=== PATIENT | female | born 1960 | race Hispanic/Latino ===

== ENCOUNTER 2018-06-02 21:36 | Emergency (ER) | payer SELFPAY ==
[~2018-06-02] VITALS: Ht 160 cm; Wt 74.8 kg
--- OUTSIDE RECORDS SUMMARY | 2018-06-02 21:39 | XMS REPORT | Summary of Care ---
Author Author [facility] Organization [facility] Address Unknown Phone Unavailable Encounter SYLVIA Grant(CESAR) [id number] Date(s): 05/02/16 - 05/02/16 [facility] [address] [place] [address]- Discharge Diagnosis: Allergic reaction Discharge Disposition: Home or Self Care Attending Physician: Evangelist Fitzgerald DO Vital Signs Most recent to 1 2 oldest [Reference Range]: Height 160.02 cm (05/02/16 12:20 AM) Temperature Oral 98.2 DegF 97.6 DegF [96.4-99.1 DegF] (05/02/16 2:13 AM) (05/02/16 12:20 AM) Blood Pressure 130/68 mmHg 147/91 mmHg [90-140/60-90 mmHg] (05/02/16 2:13 AM) *HI* (05/02/16 12:20 AM) Respiratory Rate 20 BRMIN 20 BRMIN [14-20 BRMIN] (05/02/16 2:13 AM) (05/02/16 12:20 AM) Peripheral Pulse 92 bpm 104 bpm Rate [60-100 bpm] (05/02/16 2:13 AM) *HI* (05/02/16 12:20 AM) Weight 79.545 kg (05/02/16 12:20 AM) Body Mass Index 31.06 m2 (05/02/16 12:20 AM) Problem List No data available for this section Allergies, Adverse Reactions, Alerts Substance Reaction Severity Status NKDA Active Medications Benadryl 25 mg oral capsule 50 mg=2 cap, PO, Q6H, PRN Allergic reaction, X 5 day, # 40 cap, 0 Refill(s) Start Date: 05/02/16 Stop Date: 05/07/16 Status: Ordered famotidine 20 mg oral tablet 20 mg=1 tab, PO, BID, # 28 tab, 0 Refill(s) Start Date: 05/02/16 Stop Date: 05/16/16 Status: Ordered Pepcid 20 mg, Route: IV, ONCE, Dosing Weight 79.545, kg, Start date: 05/02/16 0:36:[address], Stop date: 05/02/16 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 Start Date: 05/02/16 Stop Date: 05/02/16 Status: Completed predniSONE 50 mg oral tablet 50 mg=1 tab, PO, Daily, X 4 day, # 4 tab, 0 Refill(s) Start Date: 05/03/16 Stop Date: 05/07/16 Status: Ordered Solu-MEDROL 125 mg, Route: IVP, ONCE, Dosing Weight 79.545, kg, Priority: STAT, Start date: 05/02/16 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, Stop date: 05/02/16 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 Start Date: 05/02/16 Stop Date: 05/02/16 Status: Completed Results No data available for this section Immunizations No data available for this section Procedures Procedure Date Related Diagnosis Body Site Partial hysterectomy Social History Social History Type Response Smoking Status Never smoker; Type: Cigarettes; Exposure to Tobacco Smoke None; Cigarette Smoking Last 365 Days No; Reg Smoking Cessation Counseling No Assessment and Plan No data available for this section
--- OUTSIDE RECORDS SUMMARY | 2018-06-02 21:39 | XMS REPORT | CCD ---
Author Author Auto Generated Organization [facility] Address Unknown Phone Unavailable Care Team Providers Care Territory Representative Name Role Phone Ed Babb CP Allergies, Adverse Reactions, Alerts Substance Reaction Status NKDA Active Medications Medication Instructions Start Date End Date Status acetaminophen 650 mg, 2 tab, Route: PO, Drug 04/16/2012 04/16/2012 Completed form: TAB, ONCE, Dosing Weight 78.636, kg, Priority: STAT, Start date: 04/16/12 16:12:00, Stop date: 04/16/12 16:12:00 predniSONE 20 mg 40mg po x3day then 20 mg x3day, PO, 04/16/2012 Ordered oral tablet Daily, 9 tab, Substitution Allowed Tamiflu 75 mg oral 75 mg, 1 cap, PO, BID, 10 cap, 04/16/2012 04/21/2012 Ordered capsule Substitution Allowed, CAP Sodium Chloride 0.9% 1,000 ml, 1000 ml/hr, Route: IV, 04/16/2012 04/16/2012 Completed (Bolus) IV Drug Form: INJ, Dosing Weight 78.636, kg, ONCE, Bolus Dose, STAT, Start date: 04/16/12 18:51:00, Stop date: 04/16/12 18:51:00 Vital Signs Most recent to oldest [Reference Range]: 1 Height 160.02 cm (04/16/2012 16:05:00) Weight 78.636 kg (04/16/2012 16:05:00) Results CHEMISTRY Most recent to oldest [Reference Range]: 1 Sodium Lvl [135-145 mEq/L] 139 mEq/L (04/16/2012 19:20:00) Potassium Lvl [3.5-5.1 mEq/L] 3.3 mEq/L *LOW* (04/16/2012 19:20:00) Chloride Lvl [95-109 mEq/L] 103 mEq/L (04/16/2012:20:00) CO2 [24-32 mEq/L] 27 mEq/L (04/16/2012:20:00) AGAP [10.0-20.0 mEq/L] 12.3 mEq/L (04/16/2012:20:00) Creatinine Lvl [0.5-1.4 mg/dL] 0.6 mg/dL (04/16/2012:20:00) eGFR 107 mL/min/1.73m2 1 *NA* (04/16/2012::00) BUN [7-22 mg/dL] 5 mg/dL *LOW* (04/16/2012:20:00) B/C Ratio [6-25] 8 (04/16/2012:20:00) Glucose Lvl [70-99 mg/dL] 93 mg/dL 2 (04/16/2012:20:00) Total Protein [6.4-8.4 g/dL] 8.2 g/dL (04/16/2012:20:00) Albumin Lvl [3.5-5.0 g/dL] 4.0 g/dL (04/16/2012:20:00) Globulin [2.0-4.0 g/dL] 4.2 g/dL *HI* (04/16/2012:20:00) A/G Ratio [0.7-1.6] 1.0 (04/16/2012:20:00) Calcium Lvl [8.5-10.5 mg/dL] 8.4 mg/dL *LOW* (04/16/2012:20:00) ALT [0-65 unit/L] 28 unit/L (04/16/2012:20:00) AST [0-37 unit/L] 16 unit/L (04/16/2012:20:00) Alk Phos [39-136 unit/L] 78 unit/L (04/16/2012:20:00) Bili Total [0.2-1.3 mg/dL] 0.4 mg/dL (04/16/2012:20:00) 1Result Comment: The eGFR is calculated using the CKD-EPI formula. In most young, healthy individuals the eGFR will be >90 mL/min/1.73m2. The eGFR declines with age. An eGFR of 60-89 may be normal in some populations, particularly the elderly, for whom the CKD-EPI formula has not been extensively validated. Use of the eGFR is not recommended in the following populations: Individuals with unstable creatinine concentrations, including patients and those with serious co-morbid conditions. Patients with extremes in muscle mass or diet. The data above are obtained from the National Kidney Disease Education Program ( NKDEP) which additionally recommends that when the eGFR is used in patients with extremes of body mass index for purposes of drug dosing, the eGFR should be mul tiplied by the estimated BMI. 2Interpretive Data: Adult reference range values reflect the clinical guidelines of the [place] [employer]. HEMATOLOGY Most recent to oldest [Reference Range]: 1 WBC [3.7-10.4 K/CMM] 4.9 K/CMM (04/16/2012:20:00) RBC [4.20-5.40 M/CMM] 4.63 M/CMM (04/16/2012:20:00) Hgb [12.0-16.0 g/dL] 13.3 g/dL (04/16/2012:20:00) Hct [36.0-48.0 %] 39.0 % (04/16/2012:20:00) MCV [81.0-99.0 fL] 84.1 fL (04/16/2012:20:00) MCH [27.0-31.0 pg] 28.7 pg (04/16/2012:20:00) MCHC [32.0-36.0 g/dL] 34.1 g/dL (04/16/2012:20:00) RDW [11.5-14.5 %] 12.8 % (04/16/2012:20:00) Platelet [133-450 K/CMM] 200 K/CMM (04/16/2012:20:00) MPV [7.4-10.4 fL] 9.0 fL (04/16/2012:20:00) Segs [45.0-75.0 %] 47.1 % (04/16/2012 19:20:00) Lymphocytes [20.0-40.0 %] 39.1 % (04/16/2012 19:20:00) Monocytes [2.0-12.0 %] 10.4 % (04/16/2012 19:20:00) Eosinophils [0.0-4.0 %] 2.8 % (04/16/2012 19:20:00) Basophils [0.0-1.0 %] 0.6 % (04/16/2012 19:20:00) Segs-Bands # [1.5-8.1 K/CMM] 2.3 K/CMM (04/16/2012 19:20:00) Lymphocytes # [1.0-5.5 K/CMM] 1.9 K/CMM (04/16/2012 19:20:00) Monocytes # [0.0-0.8 K/CMM] 0.5 K/CMM (04/16/2012 19:20:00) Eosinophils # [0.0-0.5 K/CMM] 0.1 K/CMM (04/16/2012 19:20:00) Basophils # [0.0-0.2 K/CMM] 0.0 K/CMM (04/16/2012 19:20:00) Procedures Procedures Date Related Diagnosis Partial hysterectomy
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
[2018-06-02] MEDS ORDERED: ASPIRIN 81 MG CHEW TAB PO ONE (21:45)
[2018-06-02 22:42] LABS: BASOPHILS # (AUTO) 0.1 (0.0-0.1); BASOPHILS % 0.8 % (0.0-1.0); EOSINOPHILS # (AUTO) 0.2 (0.0-0.4); EOSINOPHILS % 2.5 % (0.0-6.0); HEMATOCRIT 40.8 % (34.2-44.1); HEMOGLOBIN 14.2 g/dL (12.0-16.0); LYMPHOCYTES # (AUTO) 2.8 (1.0-3.2); LYMPHOCYTES % 35.7 % (18.0-39.1); MEAN CORPUSCULAR HEMOGLOBIN 28.5 pg (28-32); MEAN CORPUSCULAR HGB CONC 34.8 g/dL (31-35); MEAN CORPUSCULAR VOLUME 81.8 fL (81-99); MONOCYTES # (AUTO) 0.6 (0.2-0.8); MONOCYTES % 7.2 % (4.4-11.3); NEUTROPHILS # (AUTO) 4.2 (2.1-6.9); NEUTROPHILS % 53.5 % (38.7-80.0); PLATELET COUNT 272 x10e3/uL (140-360); RED BLOOD COUNT 4.99 x10e6/uL (3.6-5.1); RED CELL DISTRIBUTION WIDTH 12.4 % (11.7-14.4)
--- NOTE | 2018-06-02 22:45 | Diagnostic Imaging Report ---
EXAMINATION: CHEST SINGLE (PORTABLE) INDICATION: Chest pain. COMPARISON: None FINDINGS: AP view TUBES and LINES: None. LUNGS: Lungs are well inflated. Lungs are clear. There is no evidence of pneumonia or pulmonary edema. PLEURA: No pleural effusion or pneumothorax. HEART AND MEDIASTINUM: The cardiomediastinal silhouette is unremarkable. BONES AND SOFT TISSUES: No acute osseous lesion. Soft tissues are unremarkable. UPPER ABDOMEN: No free air under the diaphragm. IMPRESSION: No acute thoracic abnormality. Signed by: DR. Rl Dozier MD on 06/02/2018 10:41 PM
[2018-06-02 22:57] LABS: ALANINE AMINOTRANSFERASE 22 IU/L (0-55); ALBUMIN 3.9 g/dL (3.5-5.0); ALBUMIN/GLOBULIN RATIO 1.1 (0.8-2.0); ALKALINE PHOSPHATASE 114 IU/L (40-150); ANION GAP 13.9 mmol/L (8-16); BLOOD UREA NITROGEN 13 mg/dL (7-26); BUN/CREATININE RATIO 18 (6-25); CALCIUM 9.2 mg/dL (8.4-10.2); CARBON DIOXIDE 27 mmol/L (22-29); CHLORIDE 101 mmol/L (98-107); CREATINE KINASE 102 IU/L (29-168); CREATININE, SERUM 0.72 mg/dL (0.57-1.11); EST GLOMERULAR FILTRATION RATE > 60 ML/MIN (60-); GLUCOSE 106 mg/dL (74-118); POTASSIUM 3.9 mmol/L (3.5-5.1); SODIUM 138 mmol/L (136-145)
[2018-06-03] MEDS ORDERED: KETOROLAC TROMETHAMINE 30 MG/ML VIAL IV STA (00:23)
[2018-06-03] MEDS ORDERED: ONDANSETRON HCL INJ 2MG/ML 2ML 2 MG/ML VIAL IV STA (01:45)
[2018-06-03] MEDS ORDERED: MORPHINE SULFATE INJ 4 MG/ML INJ 1ML IV ONE (01:45)
[2018-06-03] MEDS ORDERED: IOPAMIDOL 370 MG/ML 200 ML INFUS..BTL INJ ONE (01:58)
[2018-06-03] MEDS ORDERED: SODIUM CHLORIDE 0.9% 50ML 50 ML ONE (01:58)
--- NOTE | 2018-06-03 03:00 | Diagnostic Imaging Report ---
EXAM: CT Chest WITH contrast (PE Protocol) INDICATION: chest pain; pe protocol COMPARISON: None TECHNIQUE: Chest was scanned utilizing a multidetector helical scanner from the lung apex through the level of the diaphragm after administration of IV contrast. Thin section reconstructions were obtained with special concentration on the pulmonary arteries. Coronal and sagittal reformations were obtained. Pulmonary embolism protocol was performed. IV CONTRAST: 100 mL of Isovue 370 COMPLICATIONS: None RADIATION DOSE: Total DLP: 492.8 mGy*cm Estimated effective dose: (DLP x 0.014 x size factor) mSv Dose modulation, iterative reconstruction, and/or weight based adjustment of the mA/kV was utilized to reduce the radiation dose to as low as reasonably achievable. FINDINGS: LINES/ TUBES: None. LUNGS AND AIRWAYS: No filling defect is identified within the pulmonary arteries to the segmental level. Left upper lobe 6 mm groundglass opacity (series 3 image 30). Airways are normal. PLEURA: The pleural spaces are clear. HEART AND MEDIASTINUM: The thyroid gland is normal. No mediastinal, hilar or axillary lymphadenopathy. The heart is normal in size.. There is no pericardial effusion. . Main pulmonary artery measures 2.5 cm in diameter and the ascending aorta measures 2.7 cm. UPPER ABDOMEN: Multiple cysts measuring up to 2.2 cm in the right hepatic lobe and 1.3 cm in the left hepatic lobe. BONES: There are degenerative changes in the thoracic spine. SOFT TISSUES: Unremarkable. IMPRESSION: No pulmonary emboli or acute thoracic abnormalities. Left upper lobe 6 mm groundglass opacity. Recommend follow-up chest CT in 6-12 months according to [employer] 2017 guidelines. Signed by: DR. Rl Dozier MD on 06/03/2018 2:56 AM
[2018-06-03] MEDS ORDERED: LIDOCAINE 5% PATCH TP SCH (03:45)
== END 2018-06-03 04:39 | disposition home or self-care (01) ==
LOC: ER 21:36
DX: R07.89 Other chest pain (principal); M94.0 Chondrocostal junction syndrome [Tietze]
CPT/HCPCS: 36415; 71045; 71260; 80053; 82550; 82553; 84484; 85025; 93005; 99284; J1885; J2270; J2405; Q9967